=== PATIENT | female | born 2000 | race Caucasian/White ===

== ENCOUNTER 2021-01-28 19:51 | Emergency (ER) | payer OTHER ==
[~2021-01-28] VITALS: Ht 160 cm; Wt 49.9 kg
[~2021-01-28 19:51] MED LIST: CLARITIN10 MG PO; TUSNEL LIQUID178 ML PO
[2021-01-28] MEDS ORDERED: ATIVAN0.5 M1 PO (20:14)
[2021-01-28] MEDS ORDERED: ZOLOFT25 MG PO (20:15)
[2021-01-28] MEDS ORDERED: ACETAMINOPHEN650 M2 PO (23:55)
[2021-01-28] MEDS ORDERED: MECLIZINE HCL25 MG PO (23:55)
== END 2021-01-29 01:10 | disposition home or self-care (01) ==
LOC: ER 19:51
DX: R42 Dizziness and giddiness (principal); R00.2 Palpitations; R06.09 Other forms of dyspnea

== ENCOUNTER 2022-07-05 21:08 | Emergency (ER) | payer OTHER ==
[~2022-07-05] VITALS: Ht 157.5 cm; Wt 54.4 kg
[~2022-07-05 21:08] MED LIST changes: +ACETAMINOPHEN650 M2 PO; +ATIVAN0.5 M1 PO; +MECLIZINE HCL25 MG PO; +ZOLOFT25 MG PO
[2022-07-05] MEDS ORDERED: MUCINEX DM ER1 EAC1 PO (23:26)
[2022-07-05] MEDS ORDERED: IBU600 MG PO (23:26)
[2022-07-05] MEDS ORDERED: OSEL75CA PO (23:26)
[2022-07-05] MEDS ORDERED: CETIRIZINE HCL10 MG PO (23:26)
== END 2022-07-05 23:39 ==
LOC: ER 21:08
DX: J10.1 Influenza due to other identified influenza virus with other respiratory manifestations (principal); Z88.2 Allergy status to sulfonamides; Z20.822 Contact with and (suspected) exposure to COVID-19